=== PATIENT | female | born 1950 | race Caucasian/White ===

== ENCOUNTER → 2016-09-27 | Day surgery (SDC) | payer MEDICARE ==
[~2016-09-27] MED LIST: ACETAMINOPHEN/HYDROcodone 325 MG/7.5 MG TAB ONE; ARIP1TAB11 PO; CIPR500T2 PO; DIAZ5 PO; DIAZ5TAB PO; FLUO40CA PO; KETOROLAC TROMETHAMINE 30 MG/ML (IVP) VIAL IV PUSH ONE; LACTATED RINGER'S 1000 ML INJ 1,000 ML ONE; LANTUS2P SQ; LATA0.002 EACH EYE; LEVO150T7 PO; LISI10TA PO; LISI20TA PO; LORT7.5T3 PO; METF750T PO; METF850T PO; METO25TA6 PO; MIDAZOLAM HCL 2 MG/2 ML VIAL ONE; NEXI20CA PO; OMEP40CA2 PO; ONDANSETRON HCL 4 MG/2 ML VIAL IV PUSH ONE; PROPOFOL 200 MG/20 ML AMP IV ONE; SIMV20TA PO; SODIUM CHLORIDE 0.9% SOLN 100 ML (PAB) BAG IV ONE; SYNT137T PO; TOPR50TA PO; ceFAZolin INJ 1,000 MG VIAL ONE
--- NOTE | 2016-09-27 12:37 | MP ---
cc: FORTINO COOPER D.O.,PENG Mckeon M.D. DATE OF SURGERY 09/27/2016 PREOPERATIVE DIAGNOSIS Patient with a history of endometrial hyperplasia with postmenopausal bleeding. PROCEDURE Exam under anesthesia, fractional D&C, hysteroscopy. POSTOPERATIVE DIAGNOSIS Patient with a history of endometrial hyperplasia with postmenopausal bleeding. SURGEON MD Michael ESTIMATED BLOOD LOSS None. DRAINS None. OPERATIVE FINDINGS The patient had atrophic external genitalia. The cervix was small, posterior, stenotic the endometrial cavity was small. The uterus was small. There was no focal lesion. There was no perforation. There is no active bleeding. INDICATIONS FOR PROCEDURE Patient with a known history of endometrial hyperplasia, had been followed recently with an episode of bleeding. Ultrasound was nondiagnostic. The recommendation was to proceed with endoscopic biopsy. PROCEDURE The patient received Ancef 2 grams prophylactically. She underwent general anesthesia with LMA placement. She was carefully positioned in dorsal lithotomy position using candy-cane stirrups on her lower extremities. She had sequentials placed for VTE prophylaxis as well. She was prepped and draped. Time-out was conducted and agreed by all present in the room. Examination revealed the findings stated above. The simple right-angle Oneill retractor was used to visualize the cervix which then was secured with a single-tooth tenaculum. Endocervical curettings were obtained first and then the uterine sound was placed gently to about 6 cm. The cervix was then dilated to accommodate the 5-mm rigid hysteroscope. The scope was placed examining the cavity, showed atrophic endometrium with no focal lesion. At the completion of the hysteroscopy, a small curette was used to sample endometriosis in formalin. At the end of the case, final counts were correct. The patient was stable. She was taken to the recovery room on room air. Peng Rodriguez MD SJC/SSB /11:51 AM /12:18 PM
--- NOTE | 2016-10-18 12:55 | CATHPROC ---
[employer] HIS Report Study Information Study Number Admission Scheduled Start Study Start [id number] 10/18/2016 10/18/2016 Oct 18 2016 11:38AM Study Type [place] [facility] Left and Right Heart Cath Cardiac Catheterization Referring Institution Admit Source Facility Department 1 Other [facility] Before [employer] Babysitter Physician and Clinical Staff Initial Jaime Mejia Requisition Approver Maria Ines Tariq,LULARN Recorder Thelma Goodman,BOTANY PROFESSOR TECH2 Scrub Sesar Tariq,RT(R) TECH2 Procedures Performed Procedure Location (Site) Vessel Name Coronary Angiograms LCA Left Coronary Coronary Angiograms RCA Right Coronary LV Gram-hand inj. LV LV Ventricle Equipment Time Stunt Double Description Size Mfg Part Number Used/Scraped CATHETER, FR5 SWAN LYLA 11:39 WALKER HECK FR 5 [id number] *[id number] Used MONITOR TRANSDUCER, TRUWAVE [id number] 11:39 WALKER HECK * Used W/STOCKCOCK *[id number] [id number] *[id number] [id number] *[id number] 11:39 MEDLINE INDUSTRIES PACK, CCL CUSTOM * Used *[id number] 11:39 MEDLINE PACER PEN, SKIN DUAL W/ RULER * Used *[id number] 11:39 Appies WIRE, 3MMJ .035 180CM 180CM Used *[id number] 11:39 NAMIC MANIFOLD, 4 PORT * Used *[id number] 11:39 NYCOMED OMNIPAQUE, 350 MG, 150ML 150ML [id number] Used [id number] 11:39 GALLARDO MEDICAL BLANKET,WARM AIR CCL * Used *[id number] 11:39 TERUMO MEDICAL SHEATH, FR4 TERUMO (10CM) FR 4 [id number] Used 12:03 TERUMO MEDICAL SHEATH, FR6 TERUMO (10CM) FR 6 [id number] Used History: Current Medications Medication Dosage/Unit Route Frequency Last Date/Time Taken Glucophage LISINOPRIL LOPRESSOR Prilosec Statins (any) HCTZ Insulin History: Allergies Allergy Reaction Erythromycin History: Risk Factors Family History of Hypertension Dyslipidemia Previous [place] Previous Heart Failure Premature CAD Yes Yes No No Yes Prior Valve Prior PCI Prior CABG Surgery No No No Cerebrovascular Peripheral Artery Chronic Lung On Dialysis Diabetes Diabetes Therapy Disease Disease Disease No No No No Yes Insulin History: Symptoms/Diagnosis Selection Items Chest pain SOB History: Stress Tests Stress or Imaging Studies Performed Yes Standard Exercise Stress Test No Stress Echo No Stress Test SPECT Stress Test SPECT Result Stress Test SPECT Ischemia Risk/Extent Yes Positive High Stress Test CMR No Cardiac CTA Coronary Calcium Score No No History: Other Current Smoker No Labs Hgb (g/dl) Hct (%) RBC (MIL/MM3) WBC (l/cumm) Platelets (thousands) 12.00-18.00 37.00-55.00 4.80-6.20 4.80-10.80 140.00-450.00 12.4 38.1 4.3 8.1 219 Glucose (mg/dl) BUN (mg/dl) Creatinine (mg/dl) BUN:Creatinine (1:x) 60.00-110.00 8.00-20.00 0.10-9.00 10.00-20.00 106 12 0.7 17.1 Na (meq/l) K (meq/l) CO2 (mmol/L) 138.00-146.00 3.80-5.10 23.00-30.00 140 3.7 28.8 PT (sec) PTT (sec) INR (PTT:PT) 9.40-11.40 25.10-32.70 0.50-2.00 10.7 28.8 1 CPK-MB (ng/ML) 0.00-7.00 Not Drawn Medication Medication Total Dose (Bolus/Oral) Medication Total Dosage/Unit 1% XYLOCAINE 20 mL Medications (Bolus/Oral) Medication Time Given Dosage/Unit Administered By Reason 1% XYLOCAINE 10/18/2016 12:20:57 PM 20 mL Maria Ines Tariq Patient arrived on 20 mL 1% XYLOCAINE given by Maria Ines Tariq BSRN via Subcutaneous. Medication (Drip) Medication Time Given Dosage/Unit Concentration/Unit Diluent (ml) Solution IV Solutions 10/18/2016 11:59:05 AM 0 mL (IV) 500 NaCl .9 Patient arrived on IV Solutions given by Maria Ines Tariq BSRN in Left Antecubital via Peripheral IV . Pump/Drip Flow = 20 ml/hr using NaCl .9. Initial Case Assessment Cardiovascular HR Rhythm NIBP Chest Pain 62 SR 151/67 0 Circulatory - Right Pulses Dorsalis Pedis Femoral 2 2 Scale (0,1,2,3,4,d) Circulatory - Left Pulses Dorsalis Pedis Femoral 2 2 Scale (0,1,2,3,4,d) Neurological State Oriented to time-place- Alert Moves all extremities person Respiration - General Respiration Rate SpO2 (%) (B/min) 19 100 Final Case Assessment Cardiovascular HR Rhythm NIBP Chest Pain 59 sb 135/67 0 Circulatory - Right Pulses Dorsalis Pedis Femoral 2 2 Scale (0,1,2,3,4,d) Circulatory - Left Pulses Dorsalis Pedis Femoral 2 2 Scale (0,1,2,3,4,d) Neurological State Oriented to time-place- Alert Moves all extremities person Respiration - General Respiration Rate SpO2 (%) (B/min) 15 97 Chronological Log Time Study Chronological Log 11:57:01 Patient arrived via Bed. 11:57:02 Patient Name, D.O.B, / Armband Verified By R.N. 11:57:04 Consent signed by the physician and the patient and verified by the Before [employer] Babysitter staff. 11:57:05 Pre-op and post- op instructions given; patient acknowledges understanding of instructions. Verbal Stimulation=~VERBAL~ Physical Stimulation=~PHYSICAL~ Airway=~AIRWAY~ Respiration=~RESPIR ATION~ 11:57:06 TOTAL=~TOTAL~. (0=absent, 1=limited, 2=present) 11:58:38 Presedation assessment performed by Before School Babysitter RN. 11:58:39 Patient has been NPO for More than 6Hrs. 11:58:41 Skin Breakdown-RASH LEFT GROIN 11:58:42 Trina Prominences Protected 11:58:44 A # 20 IV was noted in the Antecubital (left). Grade = PATENT Patient arrived on IV Solutions given by Maria Ines Tariq BSRN in Left Antecubital via Periphe ral IV. Pump/Drip Flow = 11:59:05 20 ml/hr using NaCl .9. 11:59:32 History and physical on the chart or being dictated. Vitals capture started with the following parameters, Patient=Adult, Interval=5 min, Initial Pr qnozty=434 mmHg, 12:02:27 Deflation Rate=5 mmHg 12:03:12 HR=61 bpm, FLNM=840/67 mmhg, NgP7=485.0 %, Resp=15 B/min, Pain=0, Codie=10, Draper=2 Assessment: Initial Case, HR=62 BPM, Rhythm=SR, VINE=446/67 mmhg, Chest Pain=0 Right Pulses: Brandan Ped=2, Femoral=2 12:03:44 Left Pulses: Brandan Ped=2, Femoral=2 Neurological: State=Alert, Ox3, [place] Respiration: Resp=19 B/min, VxF5=315 % 12:04:48 Reference ECG taken 12:08:13 HR=63 bpm, CZBJ=493/72 mmhg, SpO2=99.0 %, Resp=20 B/min 12:10:31 Bilateral groins prepped with 2% chlorhexidine, and draped after a 3 min. waiting time. 12:12:41 Pressure channel 1 zeroed. 12:13:47 HR=60 bpm, ADCV=321/66 mmhg, SpO2=99.0 %, Resp=15 B/min 12:15:10 MD arrived. 12:18:46 HR=61 bpm, NLOG=989/63 mmhg, SpO2=98.0 %, Resp=17 B/min Time Out. Correct patient, correct procedure,correct physician, ,power injector loaded or not l oaded with contrast with 12:20:20 surgical team present. Time Out Concurred by MD, individual staff and PHARMACIST HELPER in procedure 12:20:27 Case Start 12:20:57 Patient arrived on 20 mL 1% XYLOCAINE given by Maria Ines Tariq BSRN via Subcutaneous. 12:22:30 Access site was Right Femoral Artery. 12:22:37 A SHEATH, FR6 TERUMO (10CM) FR 6 was advanced into the Fem Vein (right) using the Percutane ous technique. 12:23:41 Access site was Right Femoral Artery. 12:23:43 HR=62 bpm, HCMR=343/69 mmhg, SpO2=99.0 %, Resp=20 B/min, Pain=0, Codie=10, Draper=2 12:23:55 A SHEATH, FR4 TERUMO (10CM) FR 4 was advanced into the Fem Art (right) using the Percutaneo us technique. 12:25:03 Saturation: Site=FA (Femoral Artery) , O2=96.5 %, Hgb=12.4 gm/dl, Condition=Condition 1. Us ed in calculation. 12:25:30 A CATHETER, FR5 SWAN LYLA MONITOR FR 5 was inserted via Fem Vein (right) Recorded Pressure: MPA, HR=62, Condition=Condition 1 12:26:26 (Main Pulmonary Artery) MPA 30/11/16 12:26:45 Saturation: Site=PA (Pulmonary Artery) , O2=84 %, Hgb=12.4 gm/dl, Condition=Condition 1. Us ed in calculation. Recorded Pressure: PCW, HR=61, Condition=Condition 1 12:27:51 (Pulmonary Capillary Wedge) PCW Recorded Pressure: RV, HR=62, Condition=Condition 1 12:28:09 (Right Ventricle) RV 38/3/10 12:28:13 HR=60 bpm, DMUE=849/64 mmhg, SpO2=99.0 %, Resp=16 B/min Recorded Pressure: RA, HR=61, Condition=Condition 1 12:28:23 (Right Atrium) RA 12:29:02 Saturation: Site=RA (Right Atrium) , O2=75.7 %, Hgb=12.4 gm/dl, Condition=Condition 1. Used in calculation. 12:29:16 [place] Lyla Catheter Removed A JR 4.0 INFINITI CATHETER FR 4 was advanced over a wire. OMNIPAQUE, 350 MG, 150ML 150ML was us ed for 12:30:08 injections. Recorded Pressure: LV, HR=60, Condition=Condition 1 12:30:51 (Left Ventricle) LV 140/6/14 12:31:04 The LV was manually injected with 10 cc's and visualized. OMNIPAQUE, 350 MG, 150ML 150ML us ed. Recorded Pressure: Ao, HR=64, Condition=Condition 1 12:31:12 (Aorta) Ao 139/56/91 12:31:37 The RCA was injected and visualized at various angles. OMNIPAQUE, 350 MG, 150ML 150ML used . Recorded Pressure: Ao, HR=60, Condition=Condition 1 12:32:49 (Aorta) Ao 135/60/89 12:33:03 Catheter was removed 12:33:10 HR=59 bpm, KYTH=737/67 mmhg, SpO2=97.0 %, Resp=15 B/min A JL 4.0 INFINITI CATHETER FR 4 was advanced over a wire. OMNIPAQUE, 350 MG, 150ML 150ML was us ed for 12:33:48 injections. 12:34:03 The LCA was injected and visualized at various angles. OMNIPAQUE, 350 MG, 150ML 150ML used . 12:34:30 Catheter was removed 12:34:31 Case End Assessment: Final Case, HR=59 BPM, Rhythm=sb, VJVZ=798/67 mmhg, Chest Pain=0 Right Pulses: Brandan Ped=2, Femoral=2 12:35:30 Left Pulses: Brandan Ped=2, Femoral=2 Neurological: State=Alert, Ox3, [place] Respiration: Resp=15 B/min, SpO2=97 % 12:35:30 Sterile dressing applied to site 12:35:54 Cine recording checked. 12:37:46 Vitals capture stopped. 12:40:15 Bedside Report will be given. 12:42:28 Patient moved to stretcher 12:42:30 Patient transported to DOCU. End Study - Contrast Media Used In Study Contrast Total Opened (mL) Total Used (mL) Total Wasted (mL) Omnipaque 30 30 0 End Study - Maximum Contrast Load Max Contrast Load (mL) 792.9 End Study - Radiation Exposure Fluoro Time (minutes) 2.0 End Study - Patient Disposition Complications Transferred To No Telemetry Bed
== END | disposition home or self-care (01) ==
LOC: ESDC 10:11
PROVIDERS: ATTEND Obstetrics & Gynecology
DX: N95.0 Postmenopausal bleeding (principal); N85.00 Endometrial hyperplasia, unspecified; E11.9 Type 2 diabetes mellitus without complications; Z79.84 Long term (current) use of oral hypoglycemic drugs
CPT/HCPCS: 00952; 58558; 82948; 88305; J0690; J1885; J2250; J2405; J3010; J7120

== ENCOUNTER → 2016-10-09 | Outpatient (CLI) | payer MEDICARE ==
--- NOTE | 2016-10-05 16:48 | MH ---
cc: JAIME ROSARIO M.D. DATE OF ADMISSION 10/09/2016 ADMISSION DIAGNOSIS Narrow anterior chamber angles with potential angle closure. HISTORY OF PRESENT ILLNESS This 66-year-old white female is coming through [facility] for the purpose of a laser peripheral iridectomy of the right eye. She was found to have narrow anterior chamber angles with potential angle closure on gonioscopy and has elected to have a laser peripheral iridectomy of the right eye at this time. PAST MEDICAL HISTORY 1. Hypertension, 2. Diabetes, 3. Hypothyroid, 4. Depression 5. Cholesterol problems. PAST SURGICAL HISTORY 1. Hysterectomy, 2. D&C, 3. Laparoscopy 4. Endoscopy of the upper GI system MEDICATIONS Daily medications include 1. Omeprazole 2. Diazepam 3. Fluoxetine. 4. Lisinopril. 5. Hydrochlorothiazide 6. Lantus insulin 7. Levothyroxine. 8. Metformin. 9. Metoprolol. 10. Omeprazole p.r.n. 11. Simvastatin 12. Calcium. 13. Multivitamin. 14. Vitamin D 15. Nystatin. 16. Aspirin 17. Fish oil. ALLERGIES ERYTHROMYCIN SOCIAL HISTORY Noncontributory. FAMILY HISTORY Positive for father with cataract. REVIEW OF SYSTEMS Noncontributory. EXAMINATION On ocular exam, he patient's visual acuity without correction is 20/20 in each eye. Visual will are full to confrontation testing. Pupils are 3 mm, equal, round, reactive to light without afferent defect. Extraocular muscle exam revealed exophoria at distance and near. Anterior segment examination reveals narrow anterior chamber angles with potential angle closure on gonioscopy. The lens is clear. Intraocular pressures is 20 in the right eye and 18 in the left by applanation tonometry. The patient is on latanoprost eye drops at bedtime in each eye for chronic open angle glaucoma. The dilated fundus exam revealed sharp disks with cup-to-disk ratio 0.2 bilaterally. The macula is clear bilaterally. The background is within normal limits. IMPRESSION 1. Narrow anterior chamber angles with potential angle closure 2. Chronic open angle glaucoma moderate both eyes PLAN Laser peripheral iridectomy of the right eye through [facility]. MD URSULA Smith/SA /3:46 PM /4:35 PM
[~2016-10-09] MED LIST changes: -ACETAMINOPHEN/HYDROcodone 325 MG/7.5 MG TAB ONE; +BALANCED SALT SOLN OPHT IRRIG 15 ML BTL ONE; +HYPROMELLOSE 0.3 % OPTH GEL 10 GM (0.34 FL OZ) TUBE ONE; -KETOROLAC TROMETHAMINE 30 MG/ML (IVP) VIAL IV PUSH ONE; -LACTATED RINGER'S 1000 ML INJ 1,000 ML ONE; -MIDAZOLAM HCL 2 MG/2 ML VIAL ONE; -ONDANSETRON HCL 4 MG/2 ML VIAL IV PUSH ONE; +PILOCARPINE HCL 2% OPHT SOLN 15 ML BTL ONE; +PROPARACAINE HCL 0.5% OPHT SOLN 15 ML BTL ONE; -PROPOFOL 200 MG/20 ML AMP IV ONE; -SODIUM CHLORIDE 0.9% SOLN 100 ML (PAB) BAG IV ONE; -ceFAZolin INJ 1,000 MG VIAL ONE; +prednisoLONE ACETATE 1% OPHT SUSP 5 ML BTL ONE
--- NOTE | 2016-10-09 14:57 | MP ---
cc: JAIME ROSARIO DATE OF SURGERY: 10/09/2016 POSTOPERATIVE DIAGNOSIS: Narrow anterior chamber angle, right eye. OPERATION: Laser peripheral iridectomy, right eye. ANESTHESIA: Topical. COMPLICATIONS: None. INDICATIONS FOR PROCEDURE: See History and Physical previously dictated. PROCEDURE: The patient arrived at [facility]. Blood pressure was 149/73, pulse 46, respirations 16. A drop of Alphagan P and 2% Pilocarpine were instilled in the right eye. A drop of Ophthaine was instilled in the right eye and a laser iridectomy lens was placed on the anterior surface of the right cornea. Peripheral iridectomy was carried out utilizing the following procedure: Argon laser was first utilized forming a crater in the iris. 25 exposures of 400 milliwatts were used with a spot size of 200 microns for 0.2 seconds exposure time. Then 112 exposures of 950 milliwatts were used with the spot size of 50 microns for 0.1 seconds exposure time. Following this, YAG laser was utilized to complete the iridectomy. 15 exposures of 7.8 millijoules were utilized by the YAG laser to complete the iridectomy. An adequate opening was seen at this time. The iridectomy lens was removed and the eye was irrigated. A drop of Alphagan P was instilled. The patient was given a prescription for Pred Forte to be utilized four times a day, and has an appointment for follow-up on the first postoperative day in my office. The patient left the [facility] in satisfactory condition. MD URSULA Smith/MARCELLUS /11:31 AM /2:32 PM .4
== END ==
LOC: PHSDC 09:32
PROVIDERS: ATTEND Ophthalmology
DX: H40.031 Anatomical narrow angle, right eye (principal); I10 Essential (primary) hypertension; Z79.82 Long term (current) use of aspirin

== ENCOUNTER 2016-10-18 10:01 | Day surgery (SDC) | payer MEDICARE ==
[~2016-10-18] VITALS: Ht 165.1 cm; Wt 111.0 kg
[~2016-10-18 10:01] MED LIST changes: -ARIP1TAB11 PO; -BALANCED SALT SOLN OPHT IRRIG 15 ML BTL ONE; -DIAZ5TAB PO; -FLUO40CA PO; -HYPROMELLOSE 0.3 % OPTH GEL 10 GM (0.34 FL OZ) TUBE ONE; -LANTUS2P SQ; -LATA0.002 EACH EYE; -LEVO150T7 PO; -LISI20TA PO; -METF750T PO; -METO25TA6 PO; -OMEP40CA2 PO; -PILOCARPINE HCL 2% OPHT SOLN 15 ML BTL ONE; -PROPARACAINE HCL 0.5% OPHT SOLN 15 ML BTL ONE; -SIMV20TA PO; -prednisoLONE ACETATE 1% OPHT SUSP 5 ML BTL ONE
[2016-10-18 10:30] VITALS: BP 158/65; PULSE 55; RESP 19; O2SAT 97
[2016-10-18] MEDS ORDERED: LATA0.002 EACH EYE (10:50)
[2016-10-18] MEDS ORDERED: METF750T PO (10:50)
[2016-10-18] MEDS ORDERED: ARIP1TAB11 PO (10:50)
[2016-10-18] MEDS ORDERED: LISI20TA PO (10:50)
[2016-10-18] MEDS ORDERED: LANTUS2P SQ (10:50)
[2016-10-18] MEDS ORDERED: OMEP40CA2 PO (10:50)
[2016-10-18] MEDS ORDERED: DIAZ5TAB PO (10:50)
[2016-10-18] MEDS ORDERED: METO25TA6 PO (10:50)
[2016-10-18] MEDS ORDERED: FLUO40CA PO (10:50)
[2016-10-18] MEDS ORDERED: SIMV20TA PO (10:50)
[2016-10-18] MEDS ORDERED: ASPIRIN 81 MG CHEW TAB ONE (11:05)
[2016-10-18 11:31] LABS: AUTOMATED NEUTROPHIL # 5.8 TH/MM3 (1.8-7.7); BASOPHIL % 0.4 % (0.0-2.0); EOSINOPHIL # 0.1 TH/MM3 (0-0.4); HEMATOCRIT 38.1 % (35.0-46.0); HEMO FLAGS DIFF FINAL; LYMPH % 21.3 % (9.0-44.0); LYMPHOCYTE # 1.7 TH/MM3 (1.0-4.8); MEAN CELL VOLUME 88.5 FL (80.0-100.0); MEAN CORPUSCULAR HEMOGLOBIN 28.7 PG (27.0-34.0); MEAN CORPUSCULAR HGB CONC 32.4 % (32.0-36.0); MONO % 4.9 % (0.0-8.0); NEUT % 72.4 % (16.0-70.0); PLATELET COUNT 219 TH/MM3 (150-450); RED BLOOD COUNT 4.31 MIL/MM3 (4.00-5.30); WHITE BLOOD COUNT 8.1 TH/MM3 (4.0-11.0)
[2016-10-18 11:39] LABS: APTT (PATIENT) 28.8 SEC (24.3-30.1); PROTHROMBIN TIME - PATIENT 10.7 SEC (9.8-11.6)
[2016-10-18 11:49] LABS: BICARBONATE 28.8 MEQ/L (21.0-32.0); POTASSIUM 3.7 MEQ/L (3.5-5.1)
[2016-10-18] MEDS ORDERED: HEPARIN-NS/PF INJ 500 ML ONE (12:02)
--- NOTE | 2016-10-18 12:25 | EKG ---
Date Performed: 10/18/2016 Time Performed: 10:53:34 PTAGE: 66 years EKG: Sinus bradycardia Low QRS voltages in precordial leads Borderline ECG NO SIGNIFICANT CHANGE FROM PRIOR ELECTROCARDIOGRAM. PREVIOUS TRACING : 05/13/2009 20.46 DOCTOR: Gil Pathak Interpretating Date/Time 10/18/2016 12:24:44
[2016-10-18] MEDS ORDERED: MISC INFORMATION XX ONE (13:00)
[2016-10-18] MEDS ORDERED: BACITRACIN OINT 0.9 GM PKT TOP ONE (13:00)
[2016-10-18] MEDS ORDERED: SODIUM CHLORIDE 0.9% FLUSH 10 ML FLUSH PRN (13:00)
--- NOTE | 2016-10-18 13:54 | MA ---
cc: MEMO HERRING M.D. DATE: 10/18/2016 PROCEDURE Right heart catheterization. Left heart catheterization. Left ventriculography. Coronary angiography. INDICATION High-risk nuclear stress test with a large fixed defect in the anteroapical wall, EF 71%, diabetes mellitus, dyspnea on exertion, anginal equivalent, unstable angina, [place] Cardiovascular Society class II angina, [place] Heart Association class II congestive heart failure. Father and brother both had CABG at the age of 72. Pre-op non-cardiac surgery and coronary artery disease. DETAILS OF PROCEDURE The patient was brought to the cardiac catheterization laboratory, prepped and draped in the usual sterile fashion. 10 cc of 1% lidocaine was used to locally anesthetize the right common femoral artery and right common femoral vein. A 5-English sheath was placed in the right common femoral vein, a 4-English sheath placed in the right common femoral artery. Right heart catheterization was performed first with the following findings: Pulmonary capillary wedge pressure 18/19-13. PA pressure 27/7-17. RV pressure 38/3-10. RA pressure 10/9-7. Femoral artery sat on room air 96.5%. PA sat 84%. RA sat 75.7%. Output and index not reported due to what appears to be a shunt by oxygen saturations as detailed above. Left heart catheterization was then performed with a 4-English JR4 and JL4 catheters with the following findings: LV pressure 140/10-11. EF 60%. CORONARY ANGIOGRAPHY The right coronary artery is dominant, has mild diffuse disease in the proximal mid segment up to 20-30% angiographically. Distally there is a focal 20% stenosis. The left main coronary artery has no significant disease angiographically. The left circumflex vessel has no significant disease angiographically. It gives off a medium to large-sized first obtuse marginal vessel which has mild disease in the proximal segment up to 20% angiographically. The remainder of the AV groove left circumflex is less than 0.5 mm in diameter with no significant obstructive disease. The LAD is transapical with mild disease in the proximal mid segment up to 20% angiographically. The vessel does taper from a 3.25 vessel down to probably a 2.5 vessel fairly abruptly after the second diagonal artery. This is in the mid LAD; however, does not appear to be any focal stenosis beyond this point. The first and second diagonal arteries are small to medium size vessels with no significant obstructive disease. CONCLUSIONS 1. Angiographically mild three-vessel coronary artery disease in a right-dominant system. 2. Normal LV systolic function, ejection fraction 60%. 3. Significant increase in oxygen saturation from the right atrium to the pulmonary artery suggesting a uemy-qp-wrajf shunt. RECOMMENDATIONS 1. Recommend medical management of coronary disease and cardiac risk factor modification. 2. Recommend WM to evaluate for possible cazy-wi-lgkbh shunt. 3. The patient has been informed by myself personally and instructed by myself personally and advised by myself personally to hold her metformin/Glucophage for 48 hours post procedure. 4. MD CYNDI Marin/BT /12:48 PM /1:45 PM
[2016-10-18] MEDS ORDERED: IOHEXOL 350 MG/ML 50 ML BTL (for Cath Lab) OTHER ONE (14:55)
[2016-10-18] MEDS ORDERED: SODIUM CHLORIDE 0.9% FLUSH 10 ML FLUSH SCH (21:00)
== END 2016-10-18 15:28 | disposition home or self-care (01) ==
LOC: HDOC 10:01 → HDIC 10:02 → HDOC 15:28
PROVIDERS: ATTEND Internal Medicine Interventional Cardiology
DX: I25.110 Atherosclerotic heart disease of native coronary artery with unstable angina pectoris (principal); I50.9 Heart failure, unspecified; E11.9 Type 2 diabetes mellitus without complications
CPT/HCPCS: 80048; 82810; 85025; 85610; 85730; 93005; 93460; C1769; C1893; J1644; Q9967

== ENCOUNTER → 2016-10-23 | Outpatient (CLI) | payer MEDICARE ==
--- NOTE | 2016-10-19 12:55 | MH ---
cc: JAIME ROSARIO [facility] DATE OF ADMISSION: October 23, 2016 10/23/2016 ADMITTING DIAGNOSIS: Narrow anterior chamber angle, left eye. HISTORY OF PRESENT ILLNESS This 66-year-old white female is coming through [facility] for the purpose of a laser peripheral iridectomy of the left eye. She was found to have narrow anterior chamber angles with potential angle closure and has already undergone a laser peripheral iridectomy in the right eye on October 09, and is now coming through [facility] to have the left eye done. PAST MEDICAL HISTORY The patient has a history of hypertension, diabetes, hypothyroid, depression, cholesterol problems. SURGICAL HISTORY Includes hysterectomy, D&C, laparoscopy and CRIMINAL RECORDS TECHNICIAN surgery, laser peripheral iridectomy also of the right eye on October 09. DAILY MEDICATIONS 1. Esomeprazole 2. Diazepam p.r.n. 3. Fluoxetine. 4. Lisinopril/Hydrochlorothiazide 5. Lantus insulin. 6. Levothyroxine 7. Metformin 8. Metoprolol 9. Omeprazole p.r.n. 10. Simvastatin 11. Calcium. 12. Multivitamins. 13. Vitamin D 14. Nystatin. 15. Baby aspirin. 16. Fish oil. ALLERGIES: ERYTHROMYCIN SOCIAL HISTORY Noncontributory. FAMILY HISTORY: Positive for father with cataracts. REVIEW OF SYSTEMS: Noncontributory. OCULAR EXAMINATION: The patient's visual acuity without correction is 20/20 in each eye. Visual will full to confrontation testing. Extraocular muscle exam reveals full versions with exophoria at distance and near. Pupils are 3 mm equal, round, reactive to light without afferent defect. Anterior segment examination reveals narrow anterior chamber angle with potential angle closure in the left eye and patent peripheral iridectomy in the right eye. Intraocular pressure is 19 in the right eye, 18 in the left by applanation tonometry. Dilated fundus exam revealed sharp disk with cup-to-disk ratio 0.2 bilaterally. The macula is clear. The background is within normal limits. IMPRESSION: 1. Narrow anterior chamber angle with potential angle closure left eye. 2. Status post laser peripheral iridectomy right eye. PLAN: Laser peripheral iridectomy of the left eye through [facility]. MD URSULA Smith/DANIELITO /4:44 PM /12:56 PM
[~2016-10-23] MED LIST changes: +ARIP1TAB11 PO; +BALANCED SALT SOLN OPHT IRRIG 15 ML BTL ONE; -CIPR500T2 PO; -DIAZ5 PO; +DIAZ5TAB PO; +FLUO40CA PO; +HYPROMELLOSE 0.3 % OPTH GEL 10 GM (0.34 FL OZ) TUBE ONE; +LANTUS2P SQ; +LATA0.002 EACH EYE; +LEVO150T7 PO; -LISI10TA PO; +LISI20TA PO; -LORT7.5T3 PO; +METF750T PO; -METF850T PO; +METO25TA6 PO; -NEXI20CA PO; +OMEP40CA2 PO; +PILOCARPINE HCL 2% OPHT SOLN 15 ML BTL ONE; +PROPARACAINE HCL 0.5% OPHT SOLN 15 ML BTL ONE; +SIMV20TA PO; -SYNT137T PO; -TOPR50TA PO; +TROPICAMIDE 1% OPHT SOLN 15 ML BTL ONE; +prednisoLONE ACETATE 1% OPHT SUSP 5 ML BTL ONE
--- NOTE | 2016-10-24 07:32 | MP ---
cc: JAIME ROSARIO DATE OF SURGERY 10/23/2016 PREOPERATIVE DIAGNOSIS Narrow anterior chamber angle, left eye. POSTOPERATIVE DIAGNOSIS Narrow anterior chamber angle, left eye. OPERATION Laser peripheral iridectomy, left eye. ANESTHESIA Topical COMPLICATIONS None INDICATIONS FOR PROCEDURE See History and Physical previously dictated. PROCEDURE The patient arrived at [facility]. Blood pressure was 138/71, pulse 60, respirations 16. A drop of Ophthaine was instilled in the left eye and a laser iridectomy lens was placed on the anterior surface of the left cornea. Peripheral iridectomy was carried out utilizing the following procedure: Argon laser was first utilized forming a crater in the iris. 8 exposures of 400 milliwatts were used with a spot size of 200 microns for 0.2 seconds. Then 27 laser exposures of 950 milliwatts were used with the spot size of 50 microns 0.1 second exposure time. Following this, YAG laser was utilized to complete the iridectomy. 1 exposure of 6.4 millijoules, and 2 exposures of 1.9 millijoules were utilized with the YAG laser. An adequate opening was seen at this time. The iridectomy lens was removed and the eye was irrigated. The patient was given a prescription for Pred Forte to be utilized four times a day, and has an appointment for follow-up on the first postoperative day in my office. The patient left the [facility] in satisfactory condition. MD URSULA Smith/ERROL /10:51 AM /7:27 AM MARCO
== END ==
LOC: PHSDC 10:05
PROVIDERS: ATTEND Ophthalmology
DX: H40.032 Anatomical narrow angle, left eye (principal); I10 Essential (primary) hypertension; E11.9 Type 2 diabetes mellitus without complications; Z79.4 Long term (current) use of insulin; Z79.82 Long term (current) use of aspirin

== ENCOUNTER 2016-11-01 11:10 | Day surgery (SDC) | payer MEDICARE ==
[~2016-11-01 11:10] MED LIST changes: -BALANCED SALT SOLN OPHT IRRIG 15 ML BTL ONE; -HYPROMELLOSE 0.3 % OPTH GEL 10 GM (0.34 FL OZ) TUBE ONE; -LEVO150T7 PO; -PILOCARPINE HCL 2% OPHT SOLN 15 ML BTL ONE; -PROPARACAINE HCL 0.5% OPHT SOLN 15 ML BTL ONE; -TROPICAMIDE 1% OPHT SOLN 15 ML BTL ONE; -prednisoLONE ACETATE 1% OPHT SUSP 5 ML BTL ONE
[2016-11-01] MEDS ORDERED: LEVO150T7 PO (11:53)
[2016-11-01] MEDS ORDERED: LACTATED RINGER'S 1000 ML IV PRN (12:30)
[2016-11-01] MEDS ORDERED: CHLORHEXIDINE GLUCONATE 2 % 1 PACK (2 CLOTHS) TOPICAL PRN (12:30)
[2016-11-01] MEDS ORDERED: POVIDONE IODINE 5% (ANTISEPSIS KIT) 4 APPLICATIONS EACH NARE PRN (12:30)
[2016-11-01] MEDS ORDERED: SODIUM CHLORID 0.9% 500 ML IV PRN (12:30)
[2016-11-01] MEDS ORDERED: METOPROLOL TARTRATE 25 MG TAB PO PRN (12:30)
[2016-11-01] MEDS ORDERED: INSULIN HUMAN REGULAR 1,000 UNITS/10 ML VIAL SQ PRN (12:30)
--- NOTE | 2016-11-02 08:10 | EKG ---
Date Performed: 11/01/2016 Time Performed: 11:54:28 PTAGE: 66 years EKG: Sinus bradycardia Low QRS voltages in precordial leads Borderline ECG PREVIOUS TRACING : 10/18/2016 10.53 DOCTOR: Beltran Solis Interpretating Date/Time 11/02/2016 08:04:30
--- NOTE | 2016-11-02 08:43 | ECHRPT ---
Indication: CONCLUSIONS Mild MR. EF 60% No evidence of cardiac shunt by bubble study or color Doppler. BP: 144 / 71 HR: 96 Rhythm: Sinus Technical Quality:Fair Medications Complications Proc. Components Jaime Mojica MD, FACC, [facility] (Electronically Signed) Final Date:02 November 2016 08:42
== END 2016-11-01 14:52 | disposition home or self-care (01) ==
LOC: HDOC 11:10 → HDIC 11:11 → HDOC 14:52
PROVIDERS: ATTEND Internal Medicine Interventional Cardiology
DX: I51.0 Cardiac septal defect, acquired (principal); R06.02 Shortness of breath; I25.10 Atherosclerotic heart disease of native coronary artery without angina pectoris; E11.9 Type 2 diabetes mellitus without complications; E78.00 Pure hypercholesterolemia, unspecified
CPT/HCPCS: 93005; 93312; 93320; 93325